=== PATIENT | female | born 1980 | race Caucasian/White ===

== ENCOUNTER 2016-10-23 01:06 | Emergency (ER) | payer OTHER ==
[~2016-10-23] VITALS: Ht 182.9 cm; Wt 104.3 kg
[~2016-10-23 01:06] MED LIST: NAPROSYN500 MG PO; VALIUM2 MG PO
[2016-10-23] MEDS ORDERED: MOTRIN800 MG PO (04:33)
[2016-10-23] MEDS ORDERED: KEFLEX500 MG PO (04:42)
[2016-10-23 04:58] VITALS: BP 144/90
== END 2016-10-23 04:59 | disposition home or self-care (01) ==
LOC: EME 01:06
DX: S91.312A Laceration without foreign body, left foot, initial encounter (principal); Q70.32 Webbed toes, left foot; Z23 Encounter for immunization; W18.40XA Slipping, tripping and stumbling without falling, unspecified, initial encounter; Z88.2 Allergy status to sulfonamides; F17.200 Nicotine dependence, unspecified, uncomplicated
CPT/HCPCS: 73630; 99281; 99284